=== PATIENT | male | born 1995 | race Caucasian/White ===

== ENCOUNTER 2017-03-09 09:56 | Emergency (ER) | payer OTHER ==
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
--- NOTE | 2017-03-09 16:54 | ED ORDER SUMMARY ---
..... Patient: CONCHA WARD OrderSheet [facility] VisitID: [id number] [address] [place] [address] 21y, M Registration Date/Time: 03/09/2017 ORDER SHEET Weight: 63.5 kg (stated) Allergies: No Known Drug Allergy GENERAL ORDERS: CT Head wo Cont Urgent (10:38 03/09/2017 Nicolle CABA) (Ack 10:48 LNations ER Tech1) (16:10 RFay) CT Sinus/Facial Bones wo Cont Urgent (10:38 03/09/2017 Nicolle CABA) (Ack 10:48 LNations ER Tech1) (16:10 RFay) Hand 3 or 4V Right Urgent (10:38 03/09/2017 Nicolle CABA) (Ack 10:48 LNations ER Tech1) (16:10 RFay) MEDICATION ORDERS: Ibuprofen PO 600 mg (NOW) (12:34 03/09/2017 Umm Serra verbal order read back to Nicolle CABA) (12:34 Umm R.NPrince) IV FLUIDS: ORDER SHEET NOTES: [Electronically signed by Ben Brito R.N. (17:14 03/09/2017)] [Electronically signed by Manas Zee MD (17:39 03/16/2017)] [Electronically locked/signed by Ben Brito R.N. (17:14 03/09/2017)]
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
--- NOTE | 2017-03-09 16:54 | ED ORDER SUMMARY ---
..... Patient: CONCHA WARD OrderSheet [facility] VisitID: [id number] [address] [place] [address] 21y, M Registration Date/Time: 03/09/2017 ORDER SHEET Weight: 63.5 kg (stated) Allergies: No Known Drug Allergy GENERAL ORDERS: CT Head wo Cont Urgent (10:38 03/09/2017 Nicolle CABA) (Ack 10:48 LNations ER Tech1) (16:10 RFay) CT Sinus/Facial Bones wo Cont Urgent (10:38 03/09/2017 Nicolle CABA) (Ack 10:48 LNations ER Tech1) (16:10 RFay) Hand 3 or 4V Right Urgent (10:38 03/09/2017 Nicolle CABA) (Ack 10:48 LNations ER Tech1) (16:10 RFay) MEDICATION ORDERS: Ibuprofen PO 600 mg (NOW) (12:34 03/09/2017 Umm Serra verbal order read back to iNcolle CABA) (12:34 Umm R.NPrince) IV FLUIDS: ORDER SHEET NOTES: [Electronically signed by Ben Brito R.N. (17:14 03/09/2017)] [Electronically signed by Manas Zee MD (17:39 03/16/2017)] [Electronically locked/signed by Ben Brito R.N. (17:14 03/09/2017)]
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
--- NOTE | 2017-03-16 17:40 | ED MED RECONCILIATION SUMMARY ---
Patient: CONCHA WARD Medication Reconciliation Report [facility] VisitID: [id number] [address] [place] [address] 21y, M Registration Date/Time: 03/09/2017 Weight: 63.5 kg Height/Length: 67 in. BMI: 21.9 ALLERGIES: No Known Drug Allergy The patient's Home Medications are listed below: NONE. The source(s) of the original Home Medication information: patient The following Medications were given to the patient in the Emergency Department: Ibuprofen [PO] PO 600 mg, administered: 03/09/2017 12:34:00 PM The following Medications were prescribed to the patient: Augmentin 875 mg: take 1 tablet orally every 12 hours for 7 days. Dispense fourteen (14). No refills. Substitution is permissible. -- Manas Zee MD Ultram 50 mg: take 1-2 orally every 6 hours as needed for pain. Dispense fifteen (15). No refills. Substitution is permissible. -- Manas Zee MD
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
--- NOTE | 2017-03-16 17:40 | ED MAR SUMMARY ---
..... Medication Administration Record [facility] [address] [place] [address] Patient: CONCHA WARD Visit ID: [id number] 21y, M Weight: 63.5 kg Height/Length: 67 in BMI: 21.9 ALLERGIES: No Known Drug Allergy Given 12:34 03/09/2017 Kanwal Vincent R.N. Medication Administered: IBUPROFEN [PO], Dose: 600 mg Tablets PO. Medication Ordered: Ibuprofen PO 600 mg (NOW).
--- NOTE | 2017-03-16 17:40 | ED MED RECONCILIATION SUMMARY ---
Patient: CONCHA WARD Medication Reconciliation Report [facility] VisitID: [id number] [address] [place] [address] 21y, M Registration Date/Time: 03/09/2017 Weight: 63.5 kg Height/Length: 67 in. BMI: 21.9 ALLERGIES: No Known Drug Allergy The patient's Home Medications are listed below: NONE. The source(s) of the original Home Medication information: patient The following Medications were given to the patient in the Emergency Department: Ibuprofen [PO] PO 600 mg, administered: 03/09/2017 12:34:00 PM The following Medications were prescribed to the patient: Augmentin 875 mg: take 1 tablet orally every 12 hours for 7 days. Dispense fourteen (14). No refills. Substitution is permissible. -- Manas Zee MD Ultram 50 mg: take 1-2 orally every 6 hours as needed for pain. Dispense fifteen (15). No refills. Substitution is permissible. -- Manas Zee MD
--- NOTE | 2017-03-16 17:40 | ED MAR SUMMARY ---
..... Medication Administration Record [facility] [address] [place] [address] Patient: CONCHA WARD Visit ID: [id number] 21y, M Weight: 63.5 kg Height/Length: 67 in BMI: 21.9 ALLERGIES: No Known Drug Allergy Given 12:34 03/09/2017 Kanwal Vincent R.N. Medication Administered: IBUPROFEN [PO], Dose: 600 mg Tablets PO. Medication Ordered: Ibuprofen PO 600 mg (NOW).
== END 2017-03-09 17:06 | disposition home or self-care (01) ==
LOC: ED SRH 09:56
DX: S01.511A Laceration without foreign body of lip, initial encounter (principal); S80.212A Abrasion, left knee, initial encounter; S90.411A Abrasion, right great toe, initial encounter; J01.00 Acute maxillary sinusitis, unspecified; Y04.0XXA Assault by unarmed brawl or fight, initial encounter; Y93.9 Activity, unspecified; Y92.009 Unspecified place in unspecified non-institutional (private) residence as the place of occurrence of the external cause; Y99.9 Unspecified external cause status